=== PATIENT | female | born 1980 | race Caucasian/White ===

== ENCOUNTER 2018-01-18 16:44 | Emergency (ER) | payer BC ==
[2018-01-18] MEDS ORDERED: Lidocaine 1% w/Epinephrine 1:100K 30 ML VIAL ONE (16:56)
[2018-01-18] MEDS ORDERED: Ondansetron ODT 4 MG TAB ONE (17:15)
[2018-01-18] MEDS ORDERED: Adacel (T-DAP) 0.5 ML VIAL ONE ×2 (17:21)
== END 2018-01-18 18:00 | disposition home or self-care (01) ==
LOC: NAV ERS 16:44
DX: S61.215A Laceration without foreign body of left ring finger without damage to nail, initial encounter (principal); I10 Essential (primary) hypertension; F17.210 Nicotine dependence, cigarettes, uncomplicated; F41.9 Anxiety disorder, unspecified; W26.8XXA Contact with other sharp object(s), not elsewhere classified, initial encounter
CPT/HCPCS: 26418; 90471; 90715; J2001; Q0162; Q4049

== ENCOUNTER 2024-04-27 07:19 | Emergency (ER) | payer BC ==
[2024-04-27 07:57] LABS: #Basophils 0.1 thou/uL (0.0-0.2); #Eosinophils 0.1 thou/uL (0.0-0.7); #Lymphocytes 1.5 thou/uL (1.20-3.40); #Monocytes 0.6 thou/uL (0.11-0.59); #Neutrophils 4.1 thou/uL (1.40-6.50); %Basophils 2.3 % (0.0-1.0); %Eosinophils 1.9 % (0.0-10.0); %Lymphocytes 23.1 % (21.0-51.0); %Monocytes 9.2 % (0.0-10.0); %Neutrophils 63.5 % (42.0-75.0); Hematocrit 59.2 % (36.0-47.0); Hemoglobin 19.6 g/dL (12.0-16.0); Mean Corpuscular HGB CONC 33.1 g/dL (32.0-36.0); Mean Corpuscular Hemoglobin 32.9 pg (27.0-31.0); Mean Corpuscular Volume 99.6 fl (78.0-98.0); Mean Platelet Volume 7.2 fL (7.4-10.4); Platelet Count 262 10x3/uL (130-400); RBC Distribution Width 14.5 % (11.5-14.5); Red Blood Cell (RBC) Count 5.95 mill/uL (4.20-5.40); White Blood Cell (WBC) Count 6.4 10x3/uL (4.8-10.8)
[2024-04-27 08:05] LABS: INR-International Normal Ratio 1.2; Prothrombin Time 15.1 sec (12.0-14.7)
[2024-04-27 08:06] LABS: PTT 32.2 sec (22.9-36.1)
[2024-04-27 08:13] LABS: ALT (SGPT) 23 U/L (8-55); AST (SGOT) 24 U/L (5-34); Albumin 3.7 g/dL (3.5-5.0); Alkaline Phosphatase 48 U/L (40-110); Anion Gap 13 mmol/L (10-20); BUN (Urea Nitrogen) 8 mg/dL (7.0-18.7); Bilirubin, Total 0.9 mg/dL (0.2-1.2); CK (CPK) 25 U/L (29-168); Calc. Creatinine Clearance 0 mL/min (70-130); Calcium 9.4 mg/dL (7.8-10.44); Carbon Dioxide 26 mmol/L (22-29); Chloride 104 mmol/L (98-107); Estimated GFR 104; Globulin 3.3 g/dL (2.4-3.5); Glucose 102 mg/dL (70-105); Sodium 140 mmol/L (136-145); Troponin I 0.182 ng/mL (< 0.028)
[2024-04-27] MEDS ORDERED: Magnesium 2 GM/50 ML BAG (IN WATER) ONE (08:42)
[2024-04-27] MEDS ORDERED: Potassium Chloride 20 MEQ TAB ONE (08:42)
[2024-04-27] MEDS ORDERED: Iopamidol 370 76% 100 ML VIAL ONE (09:00)
[2024-04-27] MEDS ORDERED: Tenecteplase 50 MG ONE (09:00)
[2024-04-27] MEDS ORDERED: Acetaminophen 500 MG TAB ONE (09:41)
[2024-04-27] MEDS ORDERED: Lidocaine 1% w/Epinephrine 1:100K 20 ML VIAL ONE (11:25)
[2024-04-27] MEDS ORDERED: Bacitracin 1 PK ONE (11:26)
== END 2024-04-27 12:05 | disposition short-term general hospital (02) ==
LOC: NAV ERS 07:19
DX: S81.012A Laceration without foreign body, left knee, initial encounter (principal); I10 Essential (primary) hypertension; R79.89 Other specified abnormal findings of blood chemistry; I89.8 Other specified noninfective disorders of lymphatic vessels and lymph nodes; C73 Malignant neoplasm of thyroid gland; F17.210 Nicotine dependence, cigarettes, uncomplicated; Z79.899 Other long term (current) drug therapy; W06.XXXA Fall from bed, initial encounter
CPT/HCPCS: 12001; 36416; 70450; 70496; 70498; 71045; 80053; 82550; 84484; 85025; 85610; 85730; 93005; 94760; 96365; 96366; 96375; 36415-59; J3101; J3475; Q9967

== ENCOUNTER 2024-08-30 09:27 | Outpatient (CLI) | payer BC | END 2024-08-30 09:28 | disposition home or self-care (01) | LOC: NAV RAD 09:27 | PROVIDERS: ATTEND Family Medicine | DX: K81.0 Acute cholecystitis (principal); R74.01 Elevation of levels of liver transaminase levels; Z90.49 Acquired absence of other specified parts of digestive tract | CPT/HCPCS: 74018 ==